=== PATIENT | male | born 1985 ===

== ENCOUNTER 2021-07-25 15:15 | Emergency (ER) | payer OTHER ==
[~2021-07-25] VITALS: Ht 185.4 cm; Wt 68.5 kg
[2021-07-25 17:30] LABS: BASO % 0.6 % (0.0-2.0); EOS % 0.3 % (0.0-4.0); GRAN # 3.8 K/mm3 (1.4-6.5); GRAN % 61.1 % (42.2-75.2); HEMATOCRIT 44.7 % (42.0-52.0); LYMPH # 1.7 K/mm3 (1.2-3.4); LYMPH % 27.9 % (20.0-51.0); MEAN CELL VOLUME 84 fl (80.0-100.0); MEAN CORPUSCULAR HEMOGLOBIN 30 pg (27-31); MEAN CORPUSCULAR HGB CONC 36 g/dl (33.0-37.0); MEAN PLATELET VOLUME 8.7 fl (7.4-10.4); MONO # 0.6 K/mm3 (0.1-0.6); MONO % 9.8 % (1.7-9.3); PLATELET COUNT 266 K/mm3 (130-400); RED BLOOD COUNT 5.33 M/mm3 (4.20-5.60); REDCELL DISTRIBUTION WIDTH-CV 12.1 % (11.5-14.5)
[2021-07-25 17:43] LABS: COLLECTION METHOD CLEAN CATCH
[2021-07-25 17:45] LABS: ALANINE AMINOTRANSFERASE 13 U/L (0-55); ALBUMIN 4.5 gm/dL (3.5-5.0); ALKALINE PHOSPHATASE 78 U/L (40-150); ANION GAP 13 mmol/L (7-16); AST,SGOT 17 U/L (5-34); BILIRUBIN,TOTAL 0.8 mg/dL (0.2-1.2); BLOOD UREA NITROGEN 13 mg/dL (9-21); CALCIUM 9.5 mg/dL (8.4-10.2); CARBON DIOXIDE 23 mmol/L (22-29); CHLORIDE 103 mmol/L (98-107); CREATININE, serum 1.05 mg/dL (0.72-1.25); GLUCOSE 86 mg/dL (70-99); SODIUM 139 mmol/L (136-145)
[2021-07-25 17:49] LABS: ACETAMINOPHEN < 1.0 ug/mL (10-30); ALCOHOL(ethanol),MEDICAL < 10 mg/dL (0-10); SALICYLATE < 5.0 mg/dL (15.0-30.0)
[2021-07-25 17:57] LABS: MUCOUS Present (NOT PRESENT); PH 5 (5-8); SQUAMOUS EPITHELIAL 0-2 /hpf (0-10); URINE APPEARANCE Hazy (CLEAR/HAZY); URINE BACTERIA None Seen /hpf (NONE SEEN); URINE BILIRUBIN Negative (NEGATIVE); URINE BLOOD Negative (NEGATIVE); URINE GLUCOSE Negative (NEGATIVE); URINE KETONE 1+ (NEGATIVE); URINE LEUKOCYTE ESTERASE Negative (NEGATIVE); URINE NITRATE Negative (NEGATIVE); URINE PROTEIN(semi-quant) 1+ (NEGATIVE); URINE UROBILINOGEN Negative (NEGATIVE)
[2021-07-25 18:09] LABS: TRICYCLIC ANTIDEPRESS URINE NEGATIVE
[2021-07-25 18:15] LABS: URINE COLOR Yellow (YELLOW)
[2021-07-25] MEDS ORDERED: ROBAXIN 50500 MG/TAB PO (18:20)
[2021-07-25] MEDS ORDERED: PAMELOR 25MG25 MG PO (18:20)
[2021-07-25] MEDS ORDERED: COLESTID 1GM1 G PO (18:20)
[2021-07-25] MEDS ORDERED: DULCOLAX TAB5 MG PO (18:21)
[2021-07-25] MEDS ORDERED: FLOMAX 0.40.4 MG/CAP PO (18:22)
[2021-07-25] MEDS ORDERED: MIRALAX PA17 GM/Dose PO (18:22)
[2021-07-26 02:30] VITALS: BP 122/73; PULSE 71; TEMP 98.6
== END 2021-07-26 02:30 ==
LOC: COL.ER 15:15
PROVIDERS: Family Medicine
DX: F32.A Depression, unspecified (principal); R45.851 Suicidal ideations; R07.89 Other chest pain; Z20.822 Contact with and (suspected) exposure to COVID-19